=== PATIENT | female | born 1995 | race Caucasian/White ===

== ENCOUNTER 2021-03-28 23:24 | Emergency (ER) | payer MEDICAID, SELFPAY ==
[2021-03-28 23:35] VITALS: PULSE 98; RESP 16; TEMP 37.1; O2SAT 98; BMI 37.0
--- NOTE | 2021-03-28 23:56 | ED_ITS ---
HPI - Alcohol General Chief Complaint: ETOH/Substance Use Stated Complaint: ETOH,ANXIOUS,4 MONTHS Time Seen by Provider: 03/28/21 23:57 Related Data Allergies Allergy/AdvReac Type Severity Reaction Status Date / Time ibuprofen [IBUPROFEN] Allergy Unknown UNKNOWN, Unverified 05/30/20 17:07 hives,itch naproxen [NAPROXEN] Allergy Unknown UNKNOWN, Unverified 05/30/20 17:07 anaphylaxis Review of Systems Review of Systems: Belligerent, unable to obtain due to intoxication PMFSH Past Medical History Attestation statement: The following information was validated with the patient. Source: old records reviewed Medical History (Updated 03/28/21 @ 23:56 by Gemma Stein NP) ADHD Anxiety Bipolar disorder Schizophrenia Social History Social History Advance Directives: No Advance Directives Information Provided: No Patient : Yes Physical Exam Vital Signs: Vital Signs: Last Vital Signs Temp 98.7 F 03/28/21 23:35 Pulse 98 03/28/21 23:35 Resp 16 03/28/21 23:35 Pulse Ox 98 03/28/21 23:35 Body Mass Index 37.0 Patient noncompliant Course Course Course Narrative: 25-year-old female presents via EMS for months for alcohol intoxication. Patient belligerent, swearing at all staff, swinging her arms, using derogatory racial statements toward staff. Patient threatening to Nadia us, threatening securities and nurses jobs. [place] police department called. Discharged to police custody. MDM - Alcohol Differential Diagnosis Differential diagnosis: Likely alcohol intoxication Medical Records Attestation: I reviewed the patient's medical records. Discharge Plan Discharge Clinical Impression: Alcoholic intoxication Patient Disposition: Home, Self-Care Instructions: Alcohol Syndrome (DC), Abuse of Alcohol (ED), First Trimester (ED) Additional Instructions: Consider detox. Thank you for choosing this emergency department for evaluation. Please follow-up with primary care physician as needed. Return to the emergency department for any new, concerning, or worsening symptoms.
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
== END 2021-03-29 00:30 | disposition home or self-care (01) ==
PROVIDERS: Emergency Provider Student in an Organized Health Care Education/Training Program
DX: O99.312 Alcohol use complicating pregnancy, second trimester (principal); F10.129 Alcohol abuse with intoxication, unspecified; Y90.9 Presence of alcohol in blood, level not specified; Z3A.00 Weeks of gestation of pregnancy not specified
CPT/HCPCS: 99283